=== PATIENT | male | born 1945 | race American Indian/Alaskan Native ===

== ENCOUNTER 2016-06-05 06:03 | Day surgery (SDC) | payer MEDICARE, OTHER ==
[2016-06-05 06:54] LABS: Basophils % (Auto) 0.8 % (0.0-1.8); Eosinophils % (Auto) 6.4 % (0.0-4.3); Hematocrit 29.2 % (35.5-45.6); Hemoglobin 9.7 gm/dl (11.8-15.2); Mean Corpuscular HGB Conc 33 % (32-34); Mean Corpuscular Hemoglobin 29 pg (28-32); Mean Corpuscular Volume 87 fl (84-94); Platelet Count 88 K/mm3 (140-440); Red Blood Count 3.38 M/mm3 (3.65-5.03); Red Cell Distribution Width 20.3 % (13.2-15.2); White Blood Count 4.7 K/mm3 (4.5-11.0)
[2016-06-05 07:09] LABS: INR 1.31 (0.87-1.13); Partial Thromboplastin Time 23.2 Sec. (24.2-36.6)
[2016-06-05] MEDS ORDERED: VERSED IV ONE ×2 (08:40→08:48)
[2016-06-05] MEDS ORDERED: SUBLIMAZE ONE (08:41)
[2016-06-05] MEDS ORDERED: SUBLIMAZE IV ONE (08:48)
--- NOTE | 2016-06-05 10:18 | Cat Scan Report ---
CT BIOPSY BONE MARROW History: Pancytopenia. Description of procedure: Informed consent was obtained. Sterile technique was utilized. 1% lidocaine for skin anesthesia. Conscious sedation was accomplished with Versed and fentanyl. The patient was sedated for 20 minutes. Independent cardiorespiratory monitoring by RN. Intraobserver time of [address] guidance, a 19-gauge introducer needle was advanced into the right posterior iliac bone. 4 aspirations and a single 10-gauge core were obtained. Pathology was present to handle the samples. No complications. Impression: Successful CT-guided bone marrow biopsy as described.
[2016-06-05 11:15] VITALS: BP 109/71
--- NOTE | 2016-06-05 13:17 | XRay Report ---
METASTATIC BONE SURVEY History: Pancytopenia. Findings: Multiple views of the axial and proximal appendicular skeleton were obtained. No areas of abnormal bony production or destruction are identified. Left hip replacement is noted. Mild degenerative changes throughout the spine. Impression: Negative metastatic bone survey.
== END 2016-06-05 11:30 | disposition home or self-care (01) ==
LOC: OPU 06:03 → EDSTATUS 08:30 → OPU 11:30
PROVIDERS: ATTEND Internal Medicine Hematology & Oncology
DX: D61.818 Other pancytopenia (principal)
CPT/HCPCS: 36415; 38221; 77012; 77074; 85007; 85025; 85097; 85610; 85730; 88161; 88305; 88311; 88313; J2250; J3010

== ENCOUNTER 2017-05-20 09:18 | Day surgery (SDC) | payer MEDICARE, OTHER ==
[2017-05-20] MEDS ORDERED: XYLOCAINE MPF 2% ONE (10:00)
[2017-05-20] MEDS ORDERED: DIPRIVAN 10 MG/ML IV ONE (10:07)
--- NOTE | 2017-05-20 10:49 | Short Stay Summary ---
Short Stay Documentation Date of service: 05/20/17 Narrative H&P: The patient presents for EGD for exclusion of esophageal varices. 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 - History Past Medical History: diabetes, heart failure, liver disease (Cirrhosis secondary to SERNA), other (renal insufficiency) Past Surgical History: Other (Joint replacement surgery) Social history: no significant social history, no smoking, no alcohol abuse - Allergies and Medications Current Medications: Allergies No Known Allergies Allergy (Verified 01/09/16 03:16) Home Medications Medication Instructions Recorded Confirmed Last Taken Type Allopurinol [Zyloprim] 100 mg PO QDAY 06/05/16 06/05/16 04/23/17 History Aspirin [Adult Low Dose Aspirin EC] 81 mg PO 06/05/16 05/15/17 History AtorvaSTATin [Lipitor] 40 mg PO QHS 06/05/16 06/05/16 05/19/17 History Cholecalciferol (Vitd3)/Vit K2 [D3 1 tab PO 06/05/16 05/19/17 History + K2 Dots 1,000 Units Tab] Colchicine [Colcrys] 0.6 mg PO BID 06/05/16 06/05/16 05/19/17 History Furosemide [Lasix TAB] 40 mg PO QDAY 06/05/16 06/05/16 06/04/16 History Levothyroxine [Synthroid] 25 mcg PO BID 06/05/16 06/05/16 05/19/17 History Loratadine [Claritin] 10 mg PO QDAY 06/05/16 06/05/16 05/19/17 History Metformin HCl [Glucophage] 500 mg PO BID 06/05/16 06/05/16 06/04/16 History Multivitamin Tab [Multiple Vitamin 1 tab PO 06/05/16 05/19/17 History TAB (Theragran)] Ranitidine HCl [Acid Still Cleaner] 150 mg PO BID 06/05/16 06/05/16 05/19/17 History Sitagliptin Phosphate [Januvia] 50 mg PO QDAY 06/05/16 06/05/16 05/19/17 History glipiZIDE [Glucotrol] 10 mg PO BID 06/05/16 06/05/16 05/19/17 History - Physical exam General appearance: no acute distress, well-nourished, obese, other Integumentary: no rash, no growths, no abnormal pigmentation HEENT: Atraumatic, PERRLA, EOMI, Mucous membr. moist/pink Lungs: Clear to auscultation, Normal air movement Breasts: deferred Heart: Regular rate, Normal S1, Normal S2, No murmurs Gastrointestinal: normoactive bowel sounds, no tenderness, no distended, no masses, no hepatomegaly, no splenomegaly, obese Male Genitourinary: deferred Rectal Exam: deferred Extremities: no ischemia, pulses intact, pulses symmetrical, No edema, normal temperature, normal color, Full ROM Neurological: Normal gait, Normal speech, Strength at 5/5 X4 ext, Normal tone, Sensation intact, Cranial nerves 3-12 NL - Brief post op/procedure progress note Date of procedure: 05/20/17 Findings: see intake form Estimated blood loss: none Pathology: none Condition: stable - Disposition Condition at discharge: Good Disposition: DC-01 TO HOME OR SELFCARE - Discharge Diagnoses (1) Cirrhosis of liver not due to alcohol Status: Acute (2) SERNA (nonalcoholic steatohepatitis) Status: Acute Short Stay Discharge Plan Activity: other (No driving for 24 hours) Weight Bearing Status: Weight Bear as Tolerated Diet: diabetic Follow up with: JESUS GARRISON MD [Primary Care Provider] - 7 Days
--- NOTE | 2017-05-20 10:53 | Operative Report ---
Operative Report Operative Report: Date of procedure: 05/20/2017 Procedure: Esophagogastroduodenoscopy Preprocedure diagnosis: Advanced cirrhosis of the liver secondary to [place]. Rule out esophageal varices. Post procedure diagnosis: One plus esophageal varices, portal hypertension gastropathy without discrete gastric varices. Endoscopist: Dr. Younger Anesthesia: Monitored anesthesia care per anesthesia department Medications: Propofol per anesthesia Estimated blood loss: 0 After careful discussion of the nature and purpose of the procedure as well as details the technique risks benefits and alternatives consent was obtained. The patient was placed in the left lateral decubitus position and medicated per anesthesia. The tip of the W-21 EQ 570 video scope was passed per orum under direct vision into the esophagus and advanced into the stomach and descending duodenum. The descending duodenum the duodenal bulb and pylorus were symmetrical and normal. The scope was withdrawn into the stomach and the stomach then gently insufflated with air. The antrum was normal. The stomach was further insufflated and the scope was then retroflexed and partially withdrawn. The cardia and fundus of the stomach revealed diffuse mild portal hypertension gastropathy but no discrete varices in the cardia or fundus. The body of the stomach were within normal limits and easily distensible.The scope was then withdrawn in the forward position. The esophagogastric junction was at 40 cm. The distal esophagus revealed 1+ varices which did not completely deflated with insufflation of the esophagus. There are no stigmata of bleeding. The proximal esophagus was normal. The procedure was was well tolerated and the patient was observed in recovery. Impressions: One plus esophageal varices. Banding presently not indicated. Mild to moderate portal hypertension gastropathy without discrete gastric varices. Plan: Repeat endoscopy in 1 year to reassess her varices and the need for banding at that point. Will hold off on beta sherita therapy at the present time as the patient is diabetic and on medications currently. Electronically signed: Killian Younger MD
[2017-05-20 11:13] VITALS: BP 117/70
--- NOTE | 2017-05-20 14:28 | Anesthesia Consultation ---
Anesthesia Consult and Med Hx - Airway Anesthetic Teeth Evaluation: Poor ROM Head & Neck: Adequate Mental/Hyoid Distance: Adequate Mallampati Class: Class II Intubation Access Assessment: Good - Pulmonary Exam CTA: Yes - Cardiac Exam Cardiac Exam: RRR - Pre-Operative Health Status ASA Pre-Surgery Classification: ASA3 Proposed Anesthetic Plan: MAC - Pulmonary Hx Smoking: Yes Hx Sleep Apnea: Yes - Central Nervous System Hx Psychiatric Problems: No - Endocrine Hx Liver Disease: Yes (PATIENT UNABLE TO EXPLAIN LIVER PROBLEMS) - Other Systems Hx Cancer: No
--- NOTE | 2017-05-20 14:28 | Anesthesia Day of Surgery ---
Anesthesia Day of Surgery - Day of Surgery Patient Examined: Yes Patient H&P Reviewed: Yes Patient is NPO: Yes
--- NOTE | 2017-05-20 14:28 | Post Anesthesia Evaluation ---
- Post Anesthesia Evaluation Patient Participated: Yes Airway Patent: Yes Stable Respiratory Function: Yes Nausea/Vomiting: No Temp > 96.8F: Yes Pain Manageable: Yes Adequeate Hydration: Yes Anesthesia Complications: No Block Receding Appropriately: Not Applicable
== END 2017-05-20 09:19 | disposition home or self-care (01) ==
LOC: GIO 09:18
PROVIDERS: ATTEND Internal Medicine Gastroenterology
DX: I85.00 Esophageal varices without bleeding (principal); K76.6 Portal hypertension; K31.89 Other diseases of stomach and duodenum; K75.81 Nonalcoholic steatohepatitis (NASH); K74.60 Unspecified cirrhosis of liver; E11.22 Type 2 diabetes mellitus with diabetic chronic kidney disease; I13.0 Hypertensive heart and chronic kidney disease with heart failure and stage 1 through stage 4 chronic kidney disease, or unspecified chronic kidney disease; N18.9 Chronic kidney disease, unspecified; I50.9 Heart failure, unspecified; Z79.84 Long term (current) use of oral hypoglycemic drugs; Z79.82 Long term (current) use of aspirin; Z79.899 Other long term (current) drug therapy; Z98.890 Other specified postprocedural states; Z99.89 Dependence on other enabling machines and devices
CPT/HCPCS: 43235; 82962; J2704

== ENCOUNTER 2020-08-15 07:10 | Day surgery (SDC) | payer MEDICARE, OTHER ==
[~2020-08-15 07:10] MED LIST: SODIUM CHLORIDE 0.9% 1000 ML 1,000 ML IV SCH
[2020-08-15] MEDS ORDERED: propofoL 200 MG/20 ML VIAL IV ONE (08:47)
[2020-08-15 10:10] VITALS: BP 130/78
== END 2020-08-15 10:15 | disposition home or self-care (01) ==
LOC: GIO 07:10
PROVIDERS: ATTEND Internal Medicine Gastroenterology
DX: I85.00 Esophageal varices without bleeding (principal); K74.60 Unspecified cirrhosis of liver; K75.81 Nonalcoholic steatohepatitis (NASH); E78.00 Pure hypercholesterolemia, unspecified; G47.30 Sleep apnea, unspecified; E66.9 Obesity, unspecified; M19.90 Unspecified osteoarthritis, unspecified site; E11.9 Type 2 diabetes mellitus without complications; E03.9 Hypothyroidism, unspecified; Z79.899 Other long term (current) drug therapy; Z87.891 Personal history of nicotine dependence; Z98.41 Cataract extraction status, right eye; Z98.42 Cataract extraction status, left eye; Z96.642 Presence of left artificial hip joint; Z98.890 Other specified postprocedural states; Z68.38 Body mass index [BMI] 38.0-38.9, adult
CPT/HCPCS: 43235; 82962; J2704; J7030

== ENCOUNTER 2021-01-15 13:42 | Outpatient (CLI) | payer MEDICARE, OTHER ==
--- NOTE | 2021-01-15 19:40 | Magnetic Resonance Report ---
MR brain wo/w con INDICATION / CLINICAL INFORMATION: 75 years Male; HEARING LOSS. TECHNIQUE: Pre and postcontrast MRI of the IACs and brain. COMPARISON: None available. FINDINGS: IACS: There is no evidence of abnormal enhancement in the inner ear structures, internal auditory can als, or cerebellopontine angles. Decreased T2 signal seen in the posterior aspect of the lateral semicircular canals bilaterally, whic h may be related to prior labyrinthitis/labyrinthitis ossificans. CT of the temporal bones may be hel pful for further evaluation. Inner ear structures are grossly normal, otherwise, on high-resolution T 2 imaging. VII-VIII complex is normal in appearance bilaterally. No abnormality seen in the isaak. BRAIN / INTRACRANIAL CONTENTS: No acute ischemia, acute hemorrhage, mass effect, midline shift, or hy drocephalus. No chronic infarct or atrophy. There are moderate areas of increased signal intensity on FLAIR imaging in the white matter of the ce rebral hemispheres. These are nonspecific findings and may be related to microangiopathy (hypertensio n, diabetes, atherosclerosis), given the patient's age. Postcontrast whole brain imaging performed. CRANIOCERVICAL JUNCTION: No significant abnormality. ORBITS: No significant abnormality of visualized orbits. SINUSES / MASTOIDS: No significant abnormality of the visualized paranasal sinuses or mastoid air debbie ls. ADDITIONAL FINDINGS: None. IMPRESSION: 1. Decreased signal seen in the semicircular canals, as described above. Follow-up as clinically barbara anted. No signs of vestibular schwannoma or acoustic neuroma. 2. No focal mass, hemorrhage, hydrocephalus, or acute ischemia/infarct seen on limited, whole brain i maging. Signer Name: Jaycob Schmitz MD, III Signed: 01/15/2021 7:36 PM Workstation Name: [id number]
== END 2021-01-15 13:43 | disposition home or self-care (01) ==
LOC: MRI 13:42
PROVIDERS: ATTEND Otolaryngology
DX: H90.5 Unspecified sensorineural hearing loss (principal)
CPT/HCPCS: 36415; 70553; 82565; 84520; A9575